=== PATIENT | female | born 1960 | race Caucasian/White ===

== ENCOUNTER 2018-02-19 06:35 | Day surgery (SDC) | payer BC, OTHER ==
[~2018-02-19] VITALS: Ht 154.9 cm; Wt 78.5 kg
--- NOTE | ~2018-02-19 | OR ---
[facility] [address], [place] [address] Draft DATE OF OPERATION: 02/19/2018 SURGEON: Carolyn Chavis MD PREOPERATIVE DIAGNOSIS: Colon screening. POSTOPERATIVE DIAGNOSIS: Sigmoid diverticulosis. PROCEDURE: Total colonoscopy to cecum. ANESTHESIA: Intravenous sedation, fentanyl 100 mcg, Versed 4.5 mg. INDICATION: This 57-year-old white woman is a patient of Dr. Cosme Garvin. She has never undergone colon evaluation or colon screening in any way. She is symptom free, having no bleeding, diarrhea or constipation, and has no family history of colon cancer. She is admitted at this time to undergo colonoscopy for screening. She understands the risks of bleeding, infection, and perforation, and wished to proceed. FINDINGS: The prep was good. Complete colonoscopy was undertaken to the cecum without question. There were numerous large diverticula of the sigmoid colon, but no sign of stricture or other problem. She had no evidence of colitis or polyps. There were some internal hemorrhoids. DESCRIPTION OF PROCEDURE: The patient was brought to the endoscopy suite and placed in lateral decubitus position and given intravenous sedation to the point of slurred speech and nystagmus with full cardiopulmonary monitoring. An Olympus video colonoscope was passed in the rectum and manipulated throughout the colon. Numerous diverticula were seen in the sigmoid and left colon. The scope was ultimately advanced to the cecum without problem. The ileocecal valve and appendiceal orifice were normal. The scope was withdrawn from that point. Careful examination upon withdrawal of scope showed no sign of polyps or colitis. Only diverticular changes as previously noted. Retroflexed view in the rectum confirmed some internal hemorrhoids, PATIENT NAME: TASHA KAHN OPERATIVE REPORT DATE OF : 56 REPORT #: [id number] PHYSICIAN: CAROLYN CHAVIS MD PCP: COSME GARVIN MD REPORT IS CONFIDENTIAL AND NOT TO BE RELEASED WITHOUT AUTHORIZATION [facility] [address], [place] [address] Draft which were not thrombosed or bleeding. The scope was then removed and the patient was taken to recovery room in good condition. CONCLUDING DIAGNOSES: Diverticulosis and internal hemorrhoids. PLAN: Recommend high-fiber diet. Repeat colonoscopy in 10 years, sooner if clinically indicated as related to bleeding, diarrhea, or constipation. MD TOM Ahn/SCOTTYL /[id number] cc: Cosme Garvin MD Copies: COSME GARVIN MD ~ PATIENT NAME: TASHA KAHN OPERATIVE REPORT DATE OF : 56 REPORT #: [id number] PHYSICIAN: CAROLYN CHAVIS MD PCP: COSME GARVIN MD REPORT IS CONFIDENTIAL AND NOT TO BE RELEASED WITHOUT AUTHORIZATION
--- NOTE | 2018-02-19 08:15 | NUR ---
02/19/18 0815 Nazia Diggs 0811-PATIENT ARRIVED TO PACU ON 2L NC O2 SAT 99% WEANED TO RA. PATIENT AWAKE DENIES PAIN OR NAUSEA ABDOMEN SOFT. RR EVEN.
--- NOTE | 2018-02-20 07:21 | NUR ---
PT IS ALERT, ORIENTED AND SUPPORTED BY HER KIARA. FIRST SCOPE FOR PT, AND SHE SEEMED TO TOLERATE PREP WELL. PT REQUESTED PRAYER, WILL FOLLOW NEEDED
== END 2018-02-19 08:40 | disposition home or self-care (01) ==
LOC: OPS 06:35 → DS 06:35 → OPS 06:45
PROVIDERS: Surgery
PROC: 0DJD8ZZ Inspection of Lower Intestinal Tract, Via Natural or Artificial Opening Endoscopic (ICD-10-PCS; principal; 2018-02-19 06:45)
DX: Z12.11 Encounter for screening for malignant neoplasm of colon (principal); K64.8 Other hemorrhoids; K57.30 Diverticulosis of large intestine without perforation or abscess without bleeding
CPT/HCPCS: 99153; G0500; J2250; J3010; J7120

== ENCOUNTER 2021-09-17 07:28 | Day surgery (SDC) | payer BC, OTHER ==
[~2021-09-17] VITALS: Ht 157.5 cm; Wt 82.3 kg
[~2021-09-17 07:28] MED LIST: ACETAMINOPHEN500 MG PO; LORATADINE10 MG PO; LOW DOSE ASPIRI81 MG PO; ROSUVASTATIN CA10 MG PO; VALACYCLOVIR500 MG PO
[2021-09-17] MEDS ORDERED: CELECOXIB200 MG PO (09:38)
[2021-09-17] MEDS ORDERED: HYDROCODON-ACE1 EA10 PO (09:39)
--- NOTE | 2021-09-17 09:40 | NUR ---
09/17/21 0939 Marie Jenkins 0936- PT ARRIVES TO PACU REACTIVE TO STIMULI. RESP EVEN AND UNLABORED. OXYGEN SAT HIGH 90'S TO 100% ON 6L VIA MASK. PT REPORTS HER KNEE IS HURTING. PECAN SHELLER AWARE. GETTING PAIN MEDICATION.
--- NOTE | 2021-09-17 10:20 | NUR ---
PATIENT BACK TO ROOM FROM PACU ON RA. EMELIA IS AWAKE. RESP EVEN AND UNLABORED. RATES PAIN 2/10. DENIES NAUSEA. BP WAS 175/87, WILL RECHECK IN 30 MINUTES. DRESSING IS CLEAN, DRY, AND INTACT. ICE PACK IN PLACE. PATIENT IS TAKING SIPS OF WATER. AT BEDSIDE. CALL LIGHT WITHIN REACH.
--- NOTE | 2021-09-17 10:22 | NUR ---
PT ALERT, ORIENTED AND SUPPORTED BY HER KIARA. PT SEEMS PREPARED, SAID SHE HAD WAITED LONG ENOUGH. ALL QUESTIONS ASKED ANSWERED. HAD PRAYER, WILL FOLLOW NEEDED
--- NOTE | 2021-09-17 10:48 | NUR ---
BP NOW IS 136/66.
--- NOTE | 2021-09-17 11:20 | NUR ---
PATIENT ASSESSMENT COMPLETE. PATIENT BREATHING EQUAL AND UNLABORED. VITAL SIGNS WNL. PATIENT SURGICAL SITE IS CLEAN, DRY AND INTACT. PATIENT COMPLAINS OF PAIN. SEE PAIN ASSESSMENT. DENIES ANY NAUSEA. PATIENT IS EATING CRACKERS. DRINKING WATER AND REQUESTED TO GO TO THE BATHROOM. PATIENT WAS ABLE TO AMBULATE TO THE RESTROOM. VOIDED 200 MLS YELLOW AND CLEAR. IV SALINE LOCKED AND PATENT. NO QUESTIONS AT THIS TIME. CALL LIGHT WITHIN REACH NO FUTHER NEEDS. PRESENT IN ROOM.
--- NOTE | 2021-09-17 11:50 | NUR ---
1150-PATIENT RATES PAIN 4/10 AND WOULD LIKE PAIN MEDICINE BEFORE DISCHARGE. 1158-PAIN MEDICATION GIVEN PER EMAR.
--- NOTE | 2021-09-17 12:10 | NUR ---
PROVIDED DISCHARGE INSTRUCTIONS TO PATIENT AND . ALL QUESTIONS ANSWERED. PATIENT RATES PAIN 4/10. PATIENT AMBULATES TO WHEELCHAIR. GAIT STEADY AND TOLERATED WELL. RIDE PROVIDED TO FRONT OF HOSPITAL WHERE WAS WAITING WITH THE CAR.
--- NOTE | 2021-09-20 08:45 | OR ---
[facility] [address], [place] [address] Signed DATE OF OPERATION: 09/17/2021 SURGEON: Lucia Velasco MD PREOPERATIVE DIAGNOSIS: Medial meniscus tear, right knee. POSTOPERATIVE DIAGNOSIS: Medial meniscus tear, right knee. PROCEDURE PERFORMED: Right knee arthroscopy with partial medial meniscectomy. EMERGENCY MANAGEMENT SYSTEM DIRECTOR: None. ANESTHESIA: General. BLOOD LOSS: Minimal. BRIEF HISTORY: Roula is a 61-year-old female who has pain and locking in her knee. MRI was consistent with arthritis and a large posteromedial meniscus tear. Risks and benefits of operative treatment were discussed with her and she elected to proceed. Once consent was obtained, she was taken to the operating room. After adequate anesthesia, she was placed on the operating room table. The left leg was flexed, abducted, and externally rotated on a well-padded leg hernandez. The right was placed in a well-padded leg hernandez and prepped and draped in a standard sterile fashion. The portal sites were injected with 0.25% Marcaine with epinephrine. The standard inferior lateral and superolateral portals were made. The scope was introduced into the knee. ARTHROSCOPIC FINDINGS: The patella showed grade 2 chondromalacia with good alignment. Medial and lateral gutters had mild osteophytes throughout. ACL and PCL were intact. Lateral compartment was intact. 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 Grade 2 to grade 3 changes on the tibial side. There was a complex meniscus tear posteriorly extending to the mid body. Electronically Signed By: LUCIA VELASCO MD 09/20/21 0845 PATIENT NAME: ROULA KAHN OPERATIVE REPORT DATE OF : 56 REPORT #: [id number] PHYSICIAN: LUCIA VELASCO MD PCP: COSME VASQUEZ MD REPORT IS CONFIDENTIAL AND NOT TO BE RELEASED WITHOUT AUTHORIZATION [facility] [address], [place] [address] Signed DESCRIPTION OF OPERATION: Standard inferomedial portal was made after localization using a spinal needle. The straight biters were used to trim the meniscus tear back to a stable rim and then the flaps were shaved using the basket shaver. This was then smoothed and feathered out anteriorly. All debris was evacuated as we went. The scope was then withdrawn. Portals were closed with 3-0 nylon and dressed with Adaptic, ABD, and Alejandro wrap. She tolerated the procedure well. All sponge, needle, and instrument counts were correct. Lucia Velasco MD BA/SCOTTYL /[id number] Copies: ~ Electronically Signed By: LUCIA VELASCO MD 09/20/21 0845 PATIENT NAME: ROULA KAHN OPERATIVE REPORT DATE OF : 56 REPORT #: [id number] PHYSICIAN: LUCIA VELASCO MD PCP: COSME VASQUEZ MD REPORT IS CONFIDENTIAL AND NOT TO BE RELEASED WITHOUT AUTHORIZATION
== END 2021-09-17 12:05 | disposition home or self-care (01) ==
LOC: DS 07:28
PROVIDERS: ATTEND Specialist
PROC: 0SBC4ZZ Excision of Right Knee Joint, Percutaneous Endoscopic Approach (ICD-10-PCS; principal; 2021-09-17 10:30)
DX: S83.231A Complex tear of medial meniscus, current injury, right knee, initial encounter (principal); M94.261 Chondromalacia, right knee; M17.11 Unilateral primary osteoarthritis, right knee; X58.XXXA Exposure to other specified factors, initial encounter
CPT/HCPCS: 01400; J0690; J1885; J2001; J2250; J2704; J3010; J7121

== ENCOUNTER 2024-03-15 09:02 | Day surgery (SDC) | payer MEDICARE, OTHER ==
[~2024-03-15] VITALS: Ht 157.5 cm; Wt 78.1 kg
[~2024-03-15 09:02] MED LIST changes: +CEFAZOLIN SODIUM 2 GM/20 ML SYR IV SCH; +CELECOXIB200 MG PO; +HYDROCODON-ACE1 EA10 PO; +HYDROCODONE-AC473 M1; +IBLOOD GLUCOSE TEST STRIP 1 EA TEST VI PRN; +LACTATED RINGER'S 1,000 ML IV SCH; +LIDOCAINE HCL 1% 5 ML SDV INJ ONE; +OMEPRAZOLE20 MG PO; +TRANEXAMIC ACID 2,000 MG in SODIUM CHLORIDE 0.9% 100 ML IV SCH; +VITAMIN D350 MCG
[2024-03-15 09:21] VITALS: BP 166/90
[2024-03-15] MEDS ORDERED: KETOROLAC TROMETHAMINE 30 MG/ML VIAL ONE ×2 (09:57→10:29)
[2024-03-15] MEDS ORDERED: ondansetron HCL 4 MG/2 ML VIAL ONE (10:29)
[2024-03-15] MEDS ORDERED: fentaNYL citrate 100 MCG/2 ML VIAL ONE (10:29)
[2024-03-15] MEDS ORDERED: LIDOCAINE HCL 2% 5 ML SDV ONE (10:29)
[2024-03-15] MEDS ORDERED: DEXAMETHASONE SOD PHOS 4 MG/ML VIAL ONE (10:29)
[2024-03-15] MEDS ORDERED: propofoL 200 MG/20 ML VIAL ONE (10:29)
[2024-03-15] MEDS ORDERED: ACETAMINOPHEN 1,000 MG/100 ML VIAL ONE (10:29)
[2024-03-15] MEDS ORDERED: HYDROCODONE/ACETA 5/325 TAB PO PRN (10:30)
[2024-03-15] MEDS ORDERED: NALOXONE HCL 0.4 MG SYR IV PRN (11:00)
[2024-03-15] MEDS ORDERED: ondansetron HCL 4 MG/2 ML VIAL IV PRN (11:00)
[2024-03-15] MEDS ORDERED: IBLOOD GLUCOSE TEST STRIP 1 EA TEST VI PRN (11:00)
[2024-03-15] MEDS ORDERED: fentaNYL citrate 50 MCG/ML SDV IV PRN (11:00)
[2024-03-15] MEDS ORDERED: droPERidol 5 MG/2 ML VIAL IV PRN (11:00)
[2024-03-15] MEDS ORDERED: CELECOXIB200 MG PO (11:07)
[2024-03-15] MEDS ORDERED: HYDROCODON-ACE1 EA10 PO (11:07)
--- NOTE | 2024-03-15 11:19 | NUR ---
03/15/24 1119 Sulma,Emily 1110 PT ARRIVED TO PACU ON RA, RESP EVEN AND UNLABORED. VSS. 1115 PT WOKE TO VERBAL STIMULI AND DENEIS PAIN AND NAUSEA. PT REORIENTED TO PACU. PT TALKING TO RN OFF AND ON WARM BLACKETS GIVEN.
[2024-03-15 11:34] VITALS: BP 129/69
--- NOTE | 2024-03-15 11:40 | NUR ---
Patient returns to room 4 from PACU. report taken from ZAKIYA Diaz. patient is awake and oriented upon return. She denies any pain. She reports some slight nausea, but wants to try some crackers to help. she is sipping on water. dressing to left knee includes abd pad, adaptic, and cydney bandage and is intact and dry. no active or gross bleeding noted. Patient is resting comfortably in bed. Bed is in lowest position, call light within reach. she denies any needs at this time.
--- NOTE | 2024-03-15 12:05 | NUR ---
patient up to use restroom at this time. patient walks with a steady gait to the restroom and reports very minimal pain to her left knee while walking. patient voids 175ml and ambulates back to her room. patient allowed to get dressed at this time with her understanding that she does need to remain in the unit for an additional 30 minutes before she can be discharged.
[2024-03-15 12:24] VITALS: BP 156/87
--- NOTE | 2024-03-15 12:25 | NUR ---
patient is dressed. patient declines needing/wanting any pain medication at this time, stating that her pain is a 1/10.
--- NOTE | 2024-03-15 12:40 | NUR ---
discharge instructions were reviewed with patient and her in detail. We reviewed not taking ibuprofen while taking the celebrex and not taking any additional tylenol if she is taking the hydrocodone/aceaminophen and she expressed understanding. We reviewed activity restrictions, therapies, reasons to call Dr. Velasco and reasons to go to the emergency room and she expressed understanding. All questions were answered. Patient was discharged via wheelchair in the care of her Raghav.
[2024-03-15] MEDS ORDERED: SEVOFLURANE 250 ML BTL INH ONE (15:39)
[2024-03-15] MEDS ORDERED: CELECOXIB 200 MG CAP PO SCH (17:00)
--- NOTE | 2024-03-18 11:22 | OR ---
[facility] [address], [place] [address] Signed DATE OF OPERATION: 03/15/2024 SURGEON: Lucia Velasco MD PREOPERATIVE DIAGNOSIS: Medial meniscus tear, left knee. POSTOPERATIVE DIAGNOSIS: Medial meniscus tear, left knee. PROCEDURE PERFORMED: Left knee arthroscopy with partial medial meniscectomy. PRODUCTION ILLUSTRATOR: None. ANESTHESIA: General. BLOOD LOSS: Minimal. BRIEF HISTORY: Roula is a 63-year-old female with progressive worsening of catching and instability in her left knee. MRI is consistent with fairly sizable cyst and a large posteromedial meniscus tear. Risks and benefits of operative treatment were discussed with her and she elected to proceed. Once consent was obtained, she was taken to the operating room. After adequate anesthesia, she was placed on the operating room bed. The right leg was flexed, abducted, and externally rotated on a well-padded leg hernandez. The left was placed in the leg hernandez with no tourniquet. The leg was then prepped and draped in a standard sterile fashion. Portal sites were injected with 0.25% Marcaine with epinephrine. The standard inferolateral and superolateral portals were made and the scope was introduced in the knee. ARTHROSCOPIC FINDINGS: Significant synovitis was noted throughout. There were large osteophytes in the medial gutter. The patella showed grade 1-2 chondromalacia as did the trochlea. ACL and PCL were intact. Lateral compartment was intact. The medial compartment showed a large complex tear from the anterior medial corner all the way to the posterior horn. There was grade 4 chondromalacia to 60% of the tibia and 70% of the femur roughly. The Electronically Signed By: LUCIA VELASCO MD 03/18/24 1122 PATIENT NAME: ROULA KAHN OPERATIVE REPORT DATE OF : 56 REPORT #: [id number] PHYSICIAN: LUCIA VELASCO MD PCP: COSME VASQUEZ MD REPORT IS CONFIDENTIAL AND NOT TO BE RELEASED WITHOUT AUTHORIZATION [facility] [address] [facility] [place], [place] [address] Signed diagnostic arthroscopy was undertaken and then the medial portal was established. This was done after localization using a spinal needle. The straight biters were used to trim the meniscus tear back to a stable rim anteriorly and posteriorly. The shaver was then used to feather it out and remove all the debris. The scope was then withdrawn. Portals were closed with 3-0 nylon and the knee was injected with 60 mg of Toradol. Wounds were dressed with Adaptic, ABD and Alejandro wrap. She tolerated this well, was taken to the recovery room in satisfactory condition. All sponge, needle, and instrument counts were correct. Lucia Velasco MD BA/MODL /[id number] Copies: ~ Electronically Signed By: LUCIA VELASCO MD 03/18/24 1122 PATIENT NAME: ROULA KAHN OPERATIVE REPORT DATE OF : 56 REPORT #: [id number] PHYSICIAN: LUCIA VELASCO MD PCP: COSME VASQUEZ MD REPORT IS CONFIDENTIAL AND NOT TO BE RELEASED WITHOUT AUTHORIZATION
== END 2024-03-15 12:40 | disposition home or self-care (01) ==
LOC: DS 09:02
PROVIDERS: ATTEND Specialist
PROC: 0SBD4ZZ Excision of Left Knee Joint, Percutaneous Endoscopic Approach (ICD-10-PCS; principal; 2024-03-15 13:00)
DX: S83.242A Other tear of medial meniscus, current injury, left knee, initial encounter (principal); M17.12 Unilateral primary osteoarthritis, left knee; M94.29 Chondromalacia, multiple sites; Z79.82 Long term (current) use of aspirin; Z79.899 Other long term (current) drug therapy; Z90.710 Acquired absence of both cervix and uterus
CPT/HCPCS: 01400; J0131; J0690; J1100; J1885; J2405; J2704; J3010; J7121